=== PATIENT | male | born 1990 | race Caucasian/White ===

== ENCOUNTER → 2019-05-26 | Outpatient (CLI) | payer BC ==
[~2019-05-26] MED LIST: AZIT-1 PO
[2019-05-26 15:28] LABS: PLATELET COUNT, AUTOMATED 205 K/uL (150-450)
--- NOTE | 2019-05-26 15:58 | RADIOLOGY IMAGING REPORT ---
FACILITY: [facility] - [place] PATIENT NAME: Sanjeev Alcaraz : 1990 MR: [id number] V: [id number] EXAM DATE: ORDERING PHYSICIAN: BURT BARKLEY TECHNOLOGIST: [place] [facility] [place]: Sanjeev Alcaraz : 1990 Visit/Account:[id number] Date of Sevice: 05/26/2019 Exam type: ACUTE ABDOMEN SERIES 3 VIEW History: Left lower quadrant pain x9 months Comparison: None. Findings: PA view the chest reveals no evidence of pulmonary consolidation or pleural effusions. The cardiac s welling is normal in size. There is no free air seen beneath the hemidiaphragms. Supine and upright views the abdomen demonstrate a nonspecific bowel gas pattern. There is possible splenomegaly. Small calcifications in the pelvis likely represent phleboliths. IMPRESSION: 1. Nonspecific bowel gas pattern Possible splenomegaly Report Dictated By: Macarena Ulloa MD at 05/26/2019 3:50 PM Report E-Signed By: Macarena Ulloa MD at 05/26/2019 3:51 PM WSN:[email or web address]
== END ==
LOC: LAB 14:58
PROVIDERS: ATTEND Internal Medicine
DX: R10.9 Unspecified abdominal pain (principal); R10.32 Left lower quadrant pain
CPT/HCPCS: 36415; 74022; 81001; 82040; 82247; 82310; 82374; 82435; 82565; 82947; 84075; 84132; 84155; 84295; 84443; 84450; 84460; 84520; 85025

== ENCOUNTER → 2019-06-02 | Outpatient (CLI) | payer BC ==
--- NOTE | 2019-06-02 16:20 | RADIOLOGY IMAGING REPORT ---
FACILITY: [facility] - [place] PATIENT NAME: Sanjeev Alcaraz : 1990 MR: [id number] V: [id number] EXAM DATE: ORDERING PHYSICIAN: BURT BARKLEY TECHNOLOGIST: Location: [facility] - [place] Patient: Sanjeev Alcaraz : 1990 Visit/Account:[id number] Date of Sevice: 06/02/2019 Exam type: US GROIN History: left Inguinal painb Comparison: None. Findings: Numerous sonographic images of the inguinal regions both with and without Valsalva maneuvers demonstr ated no evidence of an inguinal hernia. There is no evidence of an inguinal mass or abnormal fluid c ollection IMPRESSION: 1. Sonographic images of the inguinal regions appear unremarkable Report Dictated By: Macarena Ulloa MD at 06/02/2019 4:11 PM Report E-Signed By: Macarena Ulloa MD at 06/02/2019 4:12 PM WSN:[email or web address]
== END ==
LOC: US 01:52
PROVIDERS: ATTEND Internal Medicine
DX: R10.32 Left lower quadrant pain (principal)
CPT/HCPCS: 76705